=== PATIENT | female | born 1960 | race Caucasian/White ===

== ENCOUNTER 2017-08-29 21:00 | Inpatient (IN) | payer MEDICAID ==
[~2017-08-29] VITALS: Ht 165.1 cm; Wt 87.5 kg
[2017-08-29] MEDS ORDERED: ALBUTEROL SULFATE 2.5 MG/3 ML NPPB ONE (21:30)
[2017-08-29 21:41] LABS: BASOPHILS # (AUTO) 0.06 x10^3/uL (0-0.1); BASOPHILS % (AUTO) 1 % (0-1); EOSINOPHILS # (AUTO) 0.12 x10^3/uL (0-0.4); EOSINOPHILS % (AUTO) 1 % (1-7); LYMPHOCYTES # (AUTO) 1.82 x10^3/uL (1-3.4); LYMPHOCYTES % (AUTO) 15 % (22-44); MD NO; MEAN CORPUSCULAR HEMOGLOBIN 25.6 pg (27.0-34.8); MEAN CORPUSCULAR HGB CONC 32.3 g/dL (32.4-35.8); MEAN CORPUSCULAR VOLUME 79.4 fL (80-100); MEAN PLATELET VOLUME 7.1 fL (7.4-10.4); MONOCYTES # (AUTO) 0.73 x10^3/uL (0.2-0.8); MONOCYTES % (AUTO) 6 % (2-9); NEUTROPHILS # (AUTO) 9.74 x10^3/uL (1.8-6.8); NEUTROPHILS % (AUTO) 78 % (42-75); PLATELET COUNT 531 x10^3/uL (130-400); RED BLOOD COUNT 4.94 x10^6/uL (3.82-5.3); RED CELL DISTRIBUTION WIDTH 14.8 % (9.6-15.2)
[2017-08-29] MEDS ORDERED: ALBUTEROL/IPRATROPIUM 2.5MG/0.5MG, 3 ML ONE (21:43)
[2017-08-29] MEDS ORDERED: ALBUTEROL SULFATE 2.5 MG/3 ML ONE (21:46)
[2017-08-29 21:53] LABS: ANION GAP 8 mmol/L (5-15); CALCIUM 8.9 mg/dL (8.5-10.1); CHLORIDE 105 mmol/L (98-107); CREATININE 0.79 mg/dL (0.55-1.02)
[2017-08-29 21:56] LABS: TROPONIN I < 0.015 ng/mL (0.000-0.045)
[2017-08-30] MEDS ORDERED: ONDANSETRON ODT 4 MG PO PRN (00:30)
[2017-08-30] MEDS ORDERED: DOCUSATE 100 MG CAPSULE PO PRN (00:30)
[2017-08-30] MEDS ORDERED: ACETAMINOPHEN 325 MG TABLET PO PRN (00:30)
[2017-08-30 00:32] VITALS: BP 128/70
[2017-08-30] MEDS: TEMAZEPAM 15 MG CAPSULE PO PRN (01:07)
[2017-08-30] MEDS ORDERED: ALBUTEROL SULFATE 2.5 MG/3 ML NPPB PRN (02:00)
[2017-08-30 03:56] LABS: TROPONIN I < 0.015 ng/mL (0.000-0.045)
[2017-08-30 07:11] VITALS: BP 102/64
[2017-08-30] MEDS ORDERED: FENTANYL PF 100 MCG/2ML ONE ×3 (07:45→10:57)
[2017-08-30] MEDS ORDERED: NALOXONE 1 MG/ML, 2ML ONE ×2 (07:46→10:58)
[2017-08-30] MEDS ORDERED: FLUMAZENIL 0.1 MG/1 ML, 5ML ONE ×2 (07:46→10:58)
[2017-08-30] MEDS ORDERED: MIDAZOLAM 1 MG/ML, 5ML ONE ×2 (07:46→10:57)
[2017-08-30] MEDS ORDERED: LIDOCAINE-MPF 2% ,5ML ONE ×2 (08:10→11:32)
[2017-08-30 10:16] LABS: TROPONIN I < 0.015 ng/mL (0.000-0.045)
[2017-08-30] MEDS ORDERED: LIDOCAINE-MPF 1%, 2ML ONE ×2 (11:10→11:38)
[2017-08-30 12:51] VITALS: BP 122/72
[2017-08-30] MEDS: morphine SULFATE 10 MG/ML, 1ML IVPush PRN ×2 (14:07→20:03)
[2017-08-30] MEDS: OXYcodone/APAP 5/325MG TABLET PO PRN ×2 (16:46→22:15)
[2017-08-30 19:02] VITALS: BP 114/72
[2017-08-30] MEDS ORDERED: MORPHINE SULFATE 4 MG/ML, 1ML ONE (20:02)
[2017-08-31 02:02] VITALS: BP 107/65
[2017-08-31] MEDS ORDERED: SODIUM CHLORIDE 0.9% 1,000 ML IV SCH (03:00)
[2017-08-31 04:28] LABS: ANION GAP 8 mmol/L (5-15); CALCIUM 8.7 mg/dL (8.5-10.1); CHLORIDE 108 mmol/L (98-107); CREATININE 0.72 mg/dL (0.55-1.02)
[2017-08-31 04:35] LABS: MEAN CORPUSCULAR HEMOGLOBIN 25.7 pg (27.0-34.8); MEAN CORPUSCULAR HGB CONC 32.2 g/dL (32.4-35.8); MEAN CORPUSCULAR VOLUME 79.8 fL (80-100); MEAN PLATELET VOLUME 7.4 fL (7.4-10.4); PLATELET COUNT 518 x10^3/uL (130-400); RED BLOOD COUNT 4.49 x10^6/uL (3.82-5.3); RED CELL DISTRIBUTION WIDTH 14.6 % (9.6-15.2)
[2017-08-31 05:27] LABS: BASOPHILS # (AUTO) 0.16 x10^3/uL (0-0.1); BASOPHILS % (AUTO) 1 % (0-1); EOSINOPHILS # (AUTO) 0.01 x10^3/uL (0-0.4); EOSINOPHILS % (AUTO) 0 % (1-7); LYMPHOCYTES # (AUTO) 2.35 x10^3/uL (1-3.4); LYMPHOCYTES % (AUTO) 12 % (22-44); MD SCAN; MONOCYTES # (AUTO) 0.92 x10^3/uL (0.2-0.8); MONOCYTES % (AUTO) 5 % (2-9); NEUTROPHILS # (AUTO) 15.86 x10^3/uL (1.8-6.8); NEUTROPHILS % (AUTO) 82 % (42-75)
[2017-08-31 07:55] VITALS: BP 120/73
[2017-08-31] MEDS: OXYcodone/APAP 5/325MG TABLET PO PRN ×3 (08:10→21:00)
[2017-08-31 09:59] LABS: BASOPHILS # (AUTO) 0.12 x10^3/uL (0-0.1); BASOPHILS % (AUTO) 1 % (0-1); EOSINOPHILS # (AUTO) 0.04 x10^3/uL (0-0.4); EOSINOPHILS % (AUTO) 0 % (1-7); LYMPHOCYTES # (AUTO) 2.09 x10^3/uL (1-3.4); LYMPHOCYTES % (AUTO) 13 % (22-44); MD NO; MEAN CORPUSCULAR HEMOGLOBIN 25.3 pg (27.0-34.8); MEAN CORPUSCULAR HGB CONC 32.2 g/dL (32.4-35.8); MEAN CORPUSCULAR VOLUME 78.6 fL (80-100); MONOCYTES # (AUTO) 0.46 x10^3/uL (0.2-0.8); MONOCYTES % (AUTO) 3 % (2-9); NEUTROPHILS # (AUTO) 13.28 x10^3/uL (1.8-6.8); NEUTROPHILS % (AUTO) 83 % (42-75); PLATELET COUNT 493 x10^3/uL (130-400); RED BLOOD COUNT 4.49 x10^6/uL (3.82-5.3); RED CELL DISTRIBUTION WIDTH 15.1 % (9.6-15.2)
[2017-08-31] MEDS: morphine SULFATE 10 MG/ML, 1ML IVPush PRN (10:24)
[2017-08-31] MEDS ORDERED: GADOBUTROL 7.5 MMOL/7.5 ML PFS ONE (10:51)
[2017-08-31] MEDS ORDERED: OMNIPAQUE 350 MG/ML, 100ML BOTTLE ONE (11:28)
[2017-08-31 15:50] VITALS: BP 120/71
[2017-08-31 20:44] VITALS: BP 116/68
[2017-09-01 03:32] VITALS: BP 111/71
[2017-09-01 04:33] LABS: BASOPHILS # (AUTO) 0.13 x10^3/uL (0-0.1); BASOPHILS % (AUTO) 1 % (0-1); EOSINOPHILS # (AUTO) 0.02 x10^3/uL (0-0.4); EOSINOPHILS % (AUTO) 0 % (1-7); LYMPHOCYTES # (AUTO) 2.82 x10^3/uL (1-3.4); LYMPHOCYTES % (AUTO) 19 % (22-44); MD NO; MEAN CORPUSCULAR HEMOGLOBIN 25.4 pg (27.0-34.8); MEAN CORPUSCULAR HGB CONC 31.9 g/dL (32.4-35.8); MEAN CORPUSCULAR VOLUME 79.4 fL (80-100); MEAN PLATELET VOLUME 7.3 fL (7.4-10.4); MONOCYTES # (AUTO) 0.71 x10^3/uL (0.2-0.8); MONOCYTES % (AUTO) 5 % (2-9); NEUTROPHILS # (AUTO) 11.23 x10^3/uL (1.8-6.8); NEUTROPHILS % (AUTO) 75 % (42-75); PLATELET COUNT 516 x10^3/uL (130-400); RED BLOOD COUNT 4.57 x10^6/uL (3.82-5.3); RED CELL DISTRIBUTION WIDTH 15.2 % (9.6-15.2)
[2017-09-01 04:43] LABS: CALCIUM 8.5 mg/dL (8.5-10.1); CHLORIDE 109 mmol/L (98-107)
[2017-09-01 04:47] LABS: ANION GAP 3 mmol/L (5-15); CREATININE 0.67 mg/dL (0.55-1.02)
[2017-09-01 08:00] VITALS: BP 123/63
[2017-09-01] MEDS: OXYcodone/APAP 5/325MG TABLET PO PRN ×3 (10:08→20:47)
[2017-09-01 11:46] LABS: TROPONIN I < 0.015 ng/mL (0.000-0.045)
[2017-09-01 14:20] VITALS: BP 118/76
[2017-09-01 19:18] VITALS: BP 105/69
[2017-09-02 00:21] VITALS: BP 97/52
[2017-09-02 04:40] LABS: BASOPHILS % (AUTO) 0 % (0-1); EOSINOPHILS % (AUTO) 0 % (1-7); LYMPHOCYTES # (AUTO) 1.78 x10^3/uL (1-3.4); LYMPHOCYTES % (AUTO) 11 % (22-44); MD NO; MEAN CORPUSCULAR HEMOGLOBIN 25.3 pg (27.0-34.8); MEAN CORPUSCULAR HGB CONC 31.9 g/dL (32.4-35.8); MEAN CORPUSCULAR VOLUME 79.4 fL (80-100); MEAN PLATELET VOLUME 7.3 fL (7.4-10.4); MONOCYTES # (AUTO) 0.57 x10^3/uL (0.2-0.8); MONOCYTES % (AUTO) 4 % (2-9); NEUTROPHILS # (AUTO) 14.13 x10^3/uL (1.8-6.8); NEUTROPHILS % (AUTO) 86 % (42-75); PLATELET COUNT 525 x10^3/uL (130-400); RED BLOOD COUNT 4.52 x10^6/uL (3.82-5.3); RED CELL DISTRIBUTION WIDTH 14.5 % (9.6-15.2)
[2017-09-02 04:51] LABS: ALBUMIN 2.4 g/dL (3.4-5.0); ANION GAP 6 mmol/L (5-15); CALCIUM 7.9 mg/dL (8.5-10.1); CHLORIDE 106 mmol/L (98-107)
[2017-09-02 04:55] LABS: ALANINE AMINOTRANSFERASE 12 U/L (12-78); ALKALINE PHOSPHATASE 81 U/L (45-117); BILIRUBIN,TOTAL 0.5 mg/dL (0.2-1.0); CREATININE 0.58 mg/dL (0.55-1.02); TOTAL PROTEIN 6.3 g/dL (6.4-8.2)
[2017-09-02 07:35] VITALS: BP 136/84
[2017-09-02] MEDS: OXYcodone/APAP 5/325MG TABLET PO PRN (08:10)
[2017-09-02 13:36] VITALS: BP 105/49
[2017-09-02 19:58] VITALS: BP 129/60
[2017-09-02] MEDS: TEMAZEPAM 15 MG CAPSULE PO PRN (21:53)
[2017-09-03 00:19] VITALS: BP 119/63
[2017-09-03 07:56] VITALS: BP 112/62
[2017-09-03] MEDS ORDERED: PRED20TA PO ×2 (11:40→11:46)
[2017-09-03 13:45] VITALS: BP 119/67
== END 2017-09-03 13:56 | disposition home or self-care (01) | DRG 180 ==
LOC: ED 23:27 → EDIP 23:32 → ED 23:35 → 3NW 08-30 00:21
PROVIDERS: ADMIT Internal Medicine; ATTEND Internal Medicine
PROC: 0BBK3ZX Excision of Right Lung, Percutaneous Approach, Diagnostic (ICD-10-PCS; principal; 2017-08-30)
PROC: 0BB13ZX Excision of Trachea, Percutaneous Approach, Diagnostic (ICD-10-PCS; 2017-08-30)
PROC: 0W9930Z Drainage of Right Pleural Cavity with Drainage Device, Percutaneous Approach (ICD-10-PCS; 2017-08-30)
DX: C34.91 Malignant neoplasm of unspecified part of right bronchus or lung (principal); J96.01 Acute respiratory failure with hypoxia; J93.9 Pneumothorax, unspecified; D18.03 Hemangioma of intra-abdominal structures; F41.0 Panic disorder [episodic paroxysmal anxiety]; D72.829 Elevated white blood cell count, unspecified; F17.210 Nicotine dependence, cigarettes, uncomplicated; Z80.1 Family history of malignant neoplasm of trachea, bronchus and lung; Z88.0 Allergy status to penicillin
CPT/HCPCS: 32405; 32557; 36415; 70553; 71045; 71275; 74177; 74183; 77012; 80048; 80053; 82040; 83880; 84145; 84484; 85025; 88305; 88333; 88341; 88342; 93005; 94640; 99156; 99157; 99285; A9585; C2613; J2250; J3010; J3490; J7613; Q0162; Q9967; C1729; C1769; G0461; J2270; J2310; J7030; J7512

== ENCOUNTER 2017-11-23 23:33 | Emergency (ER) | payer MEDICAID ==
[~2017-11-23] VITALS: Ht 165.1 cm; Wt 79.7 kg
[~2017-11-23 23:33] MED LIST: PRED20TA PO
[2017-11-24] MEDS ORDERED: SODIUM CHLORIDE FLUSH 10ML SYR IVF ONE (00:30)
[2017-11-24] MEDS ORDERED: ONDANSETRON 2MG/ML, 2ML IVPush ONE (00:30)
[2017-11-24] MEDS ORDERED: SODIUM CHLORIDE 0.9% 1,000ML IVBOLUS ONE ×2 (00:30→03:00)
[2017-11-24] MEDS ORDERED: ONDANSETRON 2MG/ML, 2ML ONE (00:32)
[2017-11-24 00:42] LABS: ALANINE AMINOTRANSFERASE 35 U/L (12-78); ALBUMIN 2.9 g/dL (3.4-5.0); ANION GAP 8 mmol/L (5-15); CALCIUM 8.7 mg/dL (8.5-10.1); CHLORIDE 105 mmol/L (98-107); CREATININE 0.76 mg/dL (0.55-1.02)
[2017-11-24 00:44] LABS: ALKALINE PHOSPHATASE 83 U/L (45-117); BILIRUBIN,TOTAL 0.5 mg/dL (0.2-1.0); TOTAL PROTEIN 6.9 g/dL (6.4-8.2)
[2017-11-24 01:05] LABS: MEAN CORPUSCULAR HEMOGLOBIN 27.9 pg (27.0-34.8); MEAN CORPUSCULAR HGB CONC 32.8 g/dL (32.4-35.8); MEAN PLATELET VOLUME 7.1 fL (7.4-10.4); PLATELET COUNT 211 x10^3/uL (130-400); RED CELL DISTRIBUTION WIDTH 26.9 % (9.6-15.2)
[2017-11-24 01:06] LABS: MD MORPH REVIEW ONLY
[2017-11-24 01:07] LABS: ANISOCYTOSIS 2+; BASOPHILS % (AUTO) 0 % (0-1); EOSINOPHILS # (AUTO) 0.01 x10^3/uL (0-0.4); EOSINOPHILS % (AUTO) 0 % (1-7); LYMPHOCYTES # (AUTO) 0.48 x10^3/uL (1-3.4); LYMPHOCYTES % (AUTO) 13 % (22-44); MICROCYTOSIS 1+; MONOCYTES # (AUTO) 0.54 x10^3/uL (0.2-0.8); MONOCYTES % (AUTO) 15 % (2-9); NEUTROPHILS # (AUTO) 2.55 x10^3/uL (1.8-6.8); NEUTROPHILS % (AUTO) 71 % (42-75); POLYCHROMASIA 1+
[2017-11-24 01:09] LABS: OVALOCYTES 1+
[2017-11-24 01:10] LABS: <PLATELET ESTIMATE> ADEQUATE; <PLT MORPHOLOGY> NORMAL PLT MORPH
[2017-11-24] MEDS ORDERED: OMNIPAQUE 350 MG/ML, 100ML BOTTLE ONE (01:54)
[2017-11-24 02:01] LABS: TROPONIN I < 0.015 ng/mL (0.000-0.045)
[2017-11-24 02:15] VITALS: BP 122/58
[2017-11-24 03:00] LABS: MICROSCOPIC NOT IND
== END 2017-11-24 03:32 | disposition home or self-care (01) ==
LOC: ED 11-24 03:26
DX: R30.0 Dysuria (principal); R10.84 Generalized abdominal pain; R53.83 Other fatigue; J44.9 Chronic obstructive pulmonary disease, unspecified; Z87.891 Personal history of nicotine dependence
CPT/HCPCS: 36415; 74022; 74177; 80053; 81003; 83690; 84484; 85025; 93005; 96374; 99285; J2405; J7030; Q9967

== ENCOUNTER 2019-04-25 15:27 | Emergency (ER) | payer MEDICAID ==
[~2019-04-25] VITALS: Ht 165.1 cm; Wt 76.5 kg
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
[2019-04-25] MEDS ORDERED: ALBUTEROL/IPRATROPIUM 2.5MG/0.5MG, 3 ML NPPB ONE (16:00)
[2019-04-25] MEDS ORDERED: SODIUM CHLORIDE FLUSH 10ML SYR IVF ONE (16:00)
[2019-04-25] MEDS ORDERED: ALBUTEROL/IPRATROPIUM 2.5MG/0.5MG, 3 ML ONE (16:02)
[2019-04-25 16:08] LABS: BASOPHILS # (AUTO) 0.02 x10^3/uL (0-0.1); BASOPHILS % (AUTO) 0 % (0-1); EOSINOPHILS # (AUTO) 0.02 x10^3/uL (0-0.4); EOSINOPHILS % (AUTO) 0 % (1-7); LYMPHOCYTES # (AUTO) 1.01 x10^3/uL (1-3.4); LYMPHOCYTES % (AUTO) 11 % (22-44); MD NO; MEAN CORPUSCULAR HEMOGLOBIN 28.3 pg (27.0-34.8); MEAN CORPUSCULAR HGB CONC 32.6 g/dL (32.4-35.8); MEAN CORPUSCULAR VOLUME 86.9 fL (80-100); MEAN PLATELET VOLUME 7.4 fL (7.4-10.4); MONOCYTES # (AUTO) 0.49 x10^3/uL (0.2-0.8); MONOCYTES % (AUTO) 5 % (2-9); NEUTROPHILS # (AUTO) 7.48 x10^3/uL (1.8-6.8); NEUTROPHILS % (AUTO) 83 % (42-75); PLATELET COUNT 230 x10^3/uL (130-400); RED BLOOD COUNT 5.04 x10^6/uL (3.82-5.3); RED CELL DISTRIBUTION WIDTH 15.2 % (9.6-15.2)
--- NOTE | 2019-04-25 16:10 | NUR ---
XRAY AND RT TO ROOM AT THIS TIME
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
[2019-04-25 16:19] LABS: ALBUMIN 3.4 g/dL (3.4-5.0); ANION GAP 9 mmol/L (5-15); CALCIUM 9.1 mg/dL (8.5-10.1); CHLORIDE 106 mmol/L (98-107); CREATININE 1.03 mg/dL (0.55-1.02)
[2019-04-25 16:23] VITALS: BP 127/77
[2019-04-25 16:23] LABS: TROPONIN I < 0.015 ng/mL (0.000-0.045)
--- NOTE | 2019-04-25 17:35 | NUR ---
PIV STARTED BY CHRISTINE COSBY (TASK NURSE). PATIENT TO CT
[2019-04-25] MEDS ORDERED: OMNIPAQUE 350 MG/ML, 100ML BOTTLE ONE (17:52)
--- NOTE | 2019-04-25 19:27 | NUR ---
Patient discharge instructions given. All questions and concerns addressed. Patient ambulatory with a steady gait. Belongings with patient.
== END 2019-04-25 19:28 | disposition home or self-care (01) ==
LOC: ED 17:15
DX: J98.01 Acute bronchospasm (principal); R06.00 Dyspnea, unspecified; J44.9 Chronic obstructive pulmonary disease, unspecified; Z87.891 Personal history of nicotine dependence
CPT/HCPCS: 36415; 71045; 71275; 80048; 82040; 83605; 84484; 85025; 85379; 93005; 94640; 99284; J7512; Q9967

== ENCOUNTER 2020-09-13 15:31 | Emergency (ER) | payer MEDICAID ==
[~2020-09-13] VITALS: Ht 165.1 cm; Wt 73.0 kg
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
--- NOTE | 2020-09-13 16:16 | NUR ---
ERPA AT BEDSIDE FOR EVALUATION.
[2020-09-13] MEDS ORDERED: HYDROcodone/APAP 5/325 TABLET ONE (16:23)
[2020-09-13] MEDS ORDERED: HYDROcodone/APAP 5/325 TABLET PO ONE (16:30)
--- NOTE | 2020-09-13 17:02 | NUR ---
PATIENT TO IMAGING.
--- NOTE | 2020-09-13 17:42 | NUR ---
PATIENT BACK FROM IMAGING, RESTING IN GURNEY, FRIEND AT BEDSIDE, RASHAWN, CALL LIGHT WITHIN REACH. WAITING FOR ORTHO.
[2020-09-13] MEDS ORDERED: LEVO100T5 PO (17:57)
--- NOTE | 2020-09-13 17:59 | NUR ---
ERPA AT BEDSIDE TO DISCUSS POC.
--- NOTE | 2020-09-13 18:45 | NUR ---
BEDSIDE REPORT FROM LINDSEY KING, PT CARE TRANSFERRED AT THIS TIME.
--- NOTE | 2020-09-13 18:47 | NUR ---
MOTOR TESTER AT BEDSIDE DOING KNEE IMMOBILIZER.
--- NOTE | 2020-09-13 18:58 | NUR ---
Note aranza in EDM - 09/13/20 at 1911 by GARCIA Patient given discharge instructions and they have confirmed that they understand the instructions. Patient ambulatory with crutches smoothly. pt nad, denies additional questions or needs at this time. no personal belongings left in room after dc.
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
[2020-09-13 19:25] VITALS: BP 121/79
--- NOTE | 2020-09-13 19:26 | NUR ---
Patient given discharge instructions and they have confirmed that they understand the instructions. Patient ambulatory with WALKER. PREFERRED WHEELCHAIR UP TO DC DESK. PT NAD, DENIES ADDITIONAL NEEDS, ALL QUESTIONS ANSWERED APPROPRIATELY. NO PERSONAL BELONGINGS LEFT IN ROOM AFTER DC.
== END 2020-09-13 19:34 | disposition home or self-care (01) ==
LOC: ED 19:31
DX: S82.041A Displaced comminuted fracture of right patella, initial encounter for closed fracture (principal); J44.9 Chronic obstructive pulmonary disease, unspecified; Z87.891 Personal history of nicotine dependence; Z85.118 Personal history of other malignant neoplasm of bronchus and lung; V03.99XA Pedestrian with other conveyance injured in collision with car, pick-up truck or van, unspecified whether traffic or nontraffic accident, initial encounter; Y93.89 Activity, other specified; Y92.69 Other specified industrial and construction area as the place of occurrence of the external cause; Y99.8 Other external cause status
CPT/HCPCS: 29505; 99283